=== PATIENT | female | born 1995 | race Caucasian/White ===

== ENCOUNTER 2017-01-26 17:23 | Emergency (ER) | payer OTHER ==
[~2017-01-26 17:23] MED LIST: ALBUTEROL20 ml INH; BACTRIM DS TABL1 TA1 PO; PROMETH-CODEIN 65 ML PO
[2017-01-26] MEDS ORDERED: VOLTAREN75 MG PO (18:21)
[2017-01-26] MEDS ORDERED: BROMFED DM COU118 ML PO (18:21)
[2017-01-26] MEDS ORDERED: AMOXICILLIN875 MG PO (18:22)
[2017-01-26] MEDS ORDERED: ALBUTEROL17 GM INH (18:22)
== END 2017-01-26 18:26 | disposition home or self-care (01) ==
LOC: SED 17:23
DX: J20.9 Acute bronchitis, unspecified (principal); F17.200 Nicotine dependence, unspecified, uncomplicated; Z98.890 Other specified postprocedural states; Z79.899 Other long term (current) drug therapy
CPT/HCPCS: 94640; 99283